=== PATIENT | female | born 2000 | race Hispanic/Latino ===

== ENCOUNTER 2020-09-30 04:43 | Inpatient (IN) | payer SELFPAY ==
[2020-09-30 05:05] VITALS: BMI 31.4
--- NOTE | 2020-09-30 06:01 | PDOC.FPROB ---
FMR OB H&P: HPI - History of Present Illness Chief Complaint: Contractions and leaking fluid History of Present Illness: Patient is a 20 year old F, , at 40 weeks based on 12.3 week US who presented due to gush of fluid this morning at 0300, with spots of blood in it, and contractions since yesterday morning, about 45 min apart. Patient denies vaginal discharge, fever/chills, shortness of breath, abdominal pain, vision changes or headaches. She promotes movement. She states that she had close care in [place] and [facility], moved here and had her first visit yesterday with PN. She denies STI history. Primary Care Physician: [facility] FMR OB H&P: Current - Care : 1 Para: 0 Gestational age: 40 weeks Due date: 09/30/2020 Dating Criteria: 12.3 week US - OB Labs Blood type: O RH: positive HIV: negative RPR: negative GBS: unknown (Growth US: 08/21/2020 2406g, hadlock 54%) FMR OB H&P: History - Past Medical History PMH: none - OB History OB History: - ORAL HYGIENIST History ORAL HYGIENIST History: no hx STI - Surgical History Sx History: no hx surgery - Social History Social History: no smoking, alcohol or drug use - Family History Family History: none FMR OB H&P: Medications - Current Home Medications: Medication Instructions Recorded Confirmed Type PNV No.118/Iron Fumarate/FA 1 tablet PO DAILY 09/30/20 09/30/20 History [ 19 Chewable Tablet] Allergies/Adverse Reactions: Allergies Allergy/AdvReac Type Severity Reaction Status Date / Time No Known Drug Allergies Allergy Verified 09/30/20 04:57 FMR OB H&P: ROS - Review of Systems General: denies: fever/chills, weight/appetite/sleep changes Eyes: denies: eye pain, vision changes ENT: denies: nasal congestion, rhinorrhea Cardiovascular: denies: chest pain, palpitation, edema Respiratory: denies: cough, congestion Gastrointestinal: denies: abdominal pain, indigestion Genitourinary (Female): reports: contractions, other (gush of fluid). denies: incontinence, dysuria, hematuria, vaginal discharge Musculoskeletal: denies: pain, stiffness Neurologic: denies: numbness, syncope Integumentary: denies: itching, rash Endocrine: denies: cold intolerance, heat intolerance Hematologic/Lymphatic: denies: prolonged or excessive bleeding, enlarged lymph nodes FMR OB H&P: Vital Signs - Maternal Vital signs: Vital Signs - First Documented Temp Pulse Resp BP 98.1 F 92 18 125/83 09/30/20 04:46 09/30/20 04:46 09/30/20 04:46 09/30/20 04:46 - Heart Tones Baseline: 130 Variability: moderate Acceleration: present Deceleration: absent Category: category 1 [place] contractions every: 4-6 min FMR OB H&P: Physical Exam - Physical Exam General: NAD, awake, alert and oriented HEENT: normocephalic and atraumatic, PERRLA, EOMI, MMM Neck: supple, FROM Heart: RRR, normal S1/S2, no murmurs/rubs/gallops General: CTAB, no respiratory distress, good air movement Abdomen: soft, gravid Musculoskeletal: normal gait and station, pulses present, FROM in all four extremities Neurological: no focal deficit Skin: no rash, good tugor Lymphatic: no unusual bruising or bleeding, no purpura FMR OB H&P: A/P Discussion: Date/Time: 09/30/20 0600 Patient is a at 40 weeks based on 12.3 week US who presents with LOF and contractions. Term Labor, sIUP SROM @ 0300 09/30 2/75/-1 @ 0445 Cat I strip, FHT 130s, +accels, -decels, morgan q4-6min - continue monitoring - will start pitocin for labor augmentation as long as contractions allow for it - Recheck in 2-4 hours pending pitocin - patient unsure about epidural, will watch educational video GBS Unknown - patient has no risk factors - considered prolonged ROM at 2100 on 09/30 - vitals stable, continue to monitor Late to Care HIV neg, RPR neg, otherwise no other labs - aware Suspected Small for Dates - Sizes were smaller than dates on exam yesterday with fundal height at [facility] - Last growth 08/21/2020 EFW 2406g, hadlock 54% This H&P was discussed with Dr. Rivera who agrees with the above documentation and plan.
[2020-09-30] MEDS ORDERED: Ondansetron PF 4 MG/2 ML Vial IVP PRN ×3 (06:10→17:58)
[2020-09-30] MEDS ORDERED: Lidocaine 1% (PF) 30 ML VIAL SC PRN ×2 (06:10→06:15)
[2020-09-30] MEDS ORDERED: hydrALAZINE 20 MG/ML VIAL SLOW IVP PRN ×2 (06:10→17:58)
[2020-09-30] MEDS ORDERED: Promethazine HCl 25 MG/ML VIAL IM PRN ×2 (06:10→10:53)
[2020-09-30] MEDS ORDERED: NS / Oxytocin 40 units/1000ml 1,000 ML IV PRN (06:10)
--- NOTE | 2020-09-30 06:22 | PDOC.BPN ---
- Brief Progress Note OBGYN semiconductor lab technician I have seen the patient at bedside. Interview done by me in slovenian. No medical issues. SROM at 0300 this AM. Unknown GBS but no risk factors (will not be prolonged ROM until 18 hrs from 0300)
[2020-09-30 06:29] LABS: Hemoglobin 12.1 g/dL (12.0-16.0); Mean Corpuscular HGB CONC 33.2 g/dL (32.0-36.0); Mean Corpuscular Hemoglobin 28.7 pg (27.0-31.0); Mean Corpuscular Volume 86.5 fL (78.0-98.0); Mean Platelet Volume 7.3 fL (7.4-10.4); Platelet Count 291 thou/uL (130-400); RBC Distribution Width 12.3 % (11.5-14.5); Red Blood Cell (RBC) Count 4.22 mill/uL (4.20-5.40); White Blood Cell (WBC) Count 9.3 thou/uL (4.8-10.8)
[2020-09-30] MEDS ORDERED: NS w/ Oxytocin 30 units 500 ML IVPB SCH (06:45)
--- NOTE | 2020-09-30 06:47 | HP ---
TIME OF EVALUATION: Roughly 0555 hours, it is now 0610 hours. LOCATION: Triage in Labor and Delivery. CHIEF COMPLAINT: Contractions and possible leakage of fluid. HISTORY OF PRESENT ILLNESS: This is a 20-year-old, G1, P0, with an estimated due date of 09/29, puts her at 40 weeks and 1 day, seen at the clinic to establish care just yesterday. She states that she was actually seen in [facility] for her care and establish care here just yesterday with a clinic. Those records are pending. She states that she is having irregular contractions and this morning, she had a leakage of fluid and on arrival appeared to be grossly ruptured. She has good movement. Denies headaches. Denies fevers or visual changes. She denies any recent trauma. REVIEW OF SYSTEMS: GENERAL: No fever. No chills. No sick contacts. PULMONARY: No shortness of breath. CARDIOVASCULAR: No chest pain. EXTREMITIES: Negative for unusual swelling or pain. PAST MEDICAL HISTORY: Otherwise negative. MEDICATIONS: None except prenatals. PAST SURGICAL HISTORY: None. ALLERGIES: NONE. SOCIAL HISTORY: Negative for alcohol, tobacco, or drug use. PHYSICAL EXAMINATION: VITAL SIGNS: Show a blood pressure of 125/83 and pulse of 91. She is afebrile. GENERAL: She is in no acute distress, but appears to have some contraction discomfort. ABDOMEN: Gravid with an estimated weight anywhere around 6 pounds or so. PELVIC: Her cervix is 2 cm dilated, 70% effaced, -1 station. Baby's head is cephalic per RN exam. There is gross evidence of rupture, so AmniSure was not performed. monitors: I evaluated the monitoring strip. It is category 1 with moderate variability. Contractions about every 4 to 6 on tocodynamometer. ASSESSMENT: This is a 20-year-old, G1, who was at 40 weeks and 1 day. The patient of the clinic who was late to establish care, first being seen yesterday with care otherwise in [place]. She arrives with early labor/ruptured membranes. She has GBS unknown. 1. GBS unknown, so we will collect for pediatric information, but we will likely not have this back to effect OB care. She currently does not have any risk factors, so we will defer to the risk factor criteria for GBS prophylaxis. Currently, there are none. 2. Pitocin for augmentation. 3. She is full term based on her EDC of 40 weeks. 4. Routine labs. 5. Case discussed with the residents and the patient seen by me. Job ID: [id number] MTDD
[2020-09-30 07:13] LABS: HBSAg Index 0.18 S/CO (0-0.99); Hep B Surf Ag Non-Reactive S/CO (NonReactive); Syphilis Antibody Nonreactive (Nonreactive); Syphilis Antibody Index 0.05 S/CO (<1.00 Non-Reactive)
--- NOTE | 2020-09-30 09:13 | PDOC.LDPN ---
Labor & Delivery Progress Note - Subjective Subjective: comfortable, vaginal pressure - Objective Vital signs reviewed and normal: yes General: NAD, resting SVE: 50/-1 Dilation: 3 Effacement: 50% Station: -1 FHT: category 1, variability present [place] contractions every: 4-5 min Plan: continue plan of care, pitocin for augmentation -: Patient is a at 40 weeks based on 12.3 week US who presents with LOF and contractions. Term Labor, sIUP SROM @ 0300 09/30 2/-1 @ 0445 pit started at 0730 /-1 @ 0850 Cat I strip, FHT 130s, +accels, -decels, morgan q4-6min - continue monitoring GBS Unknown - patient has no risk factors - considered prolonged ROM at 2100 on 09/30 - vitals stable, continue to monitor Late to Care HIV neg, RPR neg, otherwise no other labs - aware Suspected Small for Dates - Sizes were smaller than dates on exam yesterday with fundal height at [facility] - Last growth 08/21/2020 EFW 2406g, hadlock 54%
[2020-09-30] MEDS ORDERED: Bupivacaine HCl 0.25%/Epi 0.0005/PF 10 ML VIAL FS ONE (09:17)
[2020-09-30] MEDS ORDERED: Bupivacaine 0.5% 20 ML, fentaNYL Citrate/PF 400 MCG in Sodium Chloride 0.9% 72 ML EPIDURAL SCH (10:00)
[2020-09-30] MEDS ORDERED: DISCONTINUE ALL PREVIOUS NARCOTICS FS SCH (10:00)
[2020-09-30] MEDS ORDERED: Naloxone HCl 0.4 mg/ml Vial IVP PRN ×2 (10:53)
[2020-09-30] MEDS ORDERED: ePHEDrine 50 MG/ML VIAL SLOW IVP PRN (10:53)
[2020-09-30] MEDS ORDERED: diphenhydrAMINE 50 MG/ML VIAL IVP PRN (10:53)
[2020-09-30] MEDS ORDERED: Lactated Ringer's 500 ML IV PRN (10:53)
[2020-09-30] MEDS ORDERED: Acetaminophen 325 MG TAB PO PRN (10:53)
[2020-09-30] MEDS ORDERED: Communication Order-Pharmacy FS SCH (11:00)
[2020-09-30] MEDS ORDERED: Fentanyl 4 mcg/Bupivacaine 0.1% Cassette 100 ML EPIDURAL SCH (11:00)
--- NOTE | 2020-09-30 11:33 | PDOC.LDPN ---
Labor & Delivery Progress Note - Subjective Subjective: comfortable - Objective Vital signs reviewed and normal: yes General: NAD, resting SVE: 95/0 Dilation: 4 Effacement: 90% Station: 0 FHT: category 1, variability present [place] contractions every: 2-3 min Plan: continue plan of care, pitocin for augmentation -: Patient is a at 40.1 weeks based on 12.3 week US who presents with LOF and contractions. Term Labor, sIUP SROM @ 0300 09/30 /-1 @ 0445 pit started at 0730 /-1 @ 0850 /0 @ 1120, epidural Cat I strip, FHT 130s, +accels, -decels, morgan q2-3min - continue monitoring GBS Unknown - patient has no risk factors - considered prolonged ROM at 2100 on 09/30 - vitals stable, continue to monitor Late to Care HIV neg, RPR neg, otherwise no other labs - aware Suspected Small for Dates - Sizes were smaller than dates on exam yesterday with fundal height at [facility] - Last growth 08/21/2020 EFW 2406g, hadlock 54% Recheck in 2-3 hours
[2020-09-30 15:45] LABS: SARS-CoV-2 MS2 Positive; SARS-CoV-2 N Gene Negative; SARS-CoV-2 S Gene Negative; SARS-CoV-2 by NAA Not Detected (NotDetected); SARS-CoV-2 orf1ab Negative
[2020-09-30] MEDS ORDERED: Misoprostol 200 MCG TAB ONE (16:21)
[2020-09-30] MEDS ORDERED: Misoprostol 200 MCG TAB PR SCH (16:45)
--- NOTE | 2020-09-30 16:49 | PDOC.OPDEL ---
OB Operative/Delivery Note - Additional Findings/Plan Compilations/Other Findings: Vaginal Delivery Delivering Physician: Coretta Peña MD PGY-3 Attending: Murtaza Manzo MD Procedure: Spontaneous Vaginal Delivery Anesthesia: Epidural QBL: 100ml Pre-op Diagnosis: 1. Term intrauterine in labor 2. Late transition of care from [place] 3. GBS unknown Post-op Diagnosis: 1. Term intrauterine , delivered 2. Same as above Indications: A 20yo female G1 presented after SROM Delivery Note: This is 20yo F G1 @ 40.0wks who delivered a viable F infant at 1536 on 09/30/20. Following an uneventful antepartum course, a vigorous female was delivered in the occipitoanterior position. Anterior shoulder and then remainder of the body delivered. Nuchal cord x1. The head was held down and mouth and nares were bulb suctioned. Cord clamped after delayed cord clamping and cut and cord blood collected. Placenta delivered intact in the Gutiérrez presentation with a 3 vessel cord noted. Fundal massage was performed and the fundus was firm. The cervix and vagina small second degree Laceration noted and repaired with 3-0 Chromic in the usual fashion with good approximation and hemostasis. went to nursery in good condition for routine care. Apgars were 8/9 at 1 & 5 minutes, respectively. Patient tolerated delivery well and went to after routine recovery/care. Addendum - Attending - Attending Attestation Date/Time: 10/01/20 7077 I personally evaluated the patient and discussed the management with Dr. Peña I agree with the History, Examination, Assessment and Plan documented above with any addition or exceptions noted below. I was present and supervising for the 2nd and 3rd stages of labor.
[2020-09-30] MEDS ORDERED: Bisacodyl 10 MG SUPP PR PRN (17:58)
[2020-09-30] MEDS ORDERED: Milk Of Magnesia 30 ML UDCUP PO PRN (17:58)
[2020-09-30] MEDS ORDERED: Lanolin Ointment 7 GM TUBE TOP PRN (17:58)
[2020-09-30] MEDS ORDERED: NS / Oxytocin 40 units/1000ml 1,000 ML IV SCH (17:58)
[2020-09-30] MEDS ORDERED: Benzocaine-Menthol 82.5 ML CAN TOP PRN (17:58)
[2020-09-30] MEDS ORDERED: Preparation H Ointment 28 GM TUBE PR PRN (17:58)
[2020-09-30] MEDS ORDERED: Ferrous Sulfate 325 MG TAB PO SCH (18:30)
[2020-09-30] MEDS: Docusate Calcium (SURFAK) 240 MG CAP PO SCH (19:54)
[2020-09-30] MEDS: Ibuprofen 800 MG TAB PO SCH (19:54)
[2020-10-01] MEDS: Ibuprofen 800 MG TAB PO SCH ×3 (05:59→22:12)
[2020-10-01] MEDS: Ferrous Sulfate 325 MG TAB PO SCH ×2 (07:27→16:34)
--- NOTE | 2020-10-01 07:48 | PDOC.OBPPN ---
FMR OB PN: Subj - Interval History Hospital Day: 1 Day: 1 Chief Complaint: s/p @ 40W EGA by 1T US @ 1536 on 09/30 Indentification: G1>P1 Interval History: No complaints FMR OB PN: Obj - Maternal Vital signs: BP: [99/53] HR: [89] RR: [20] Tmax: [98] Pox: [98]% on [Room Air] Wt: [73 kg] - Urine output I&O: 09/30/20 10/01/20 10/02/20 06:59 06:59 06:59 Intake Total 500 Output Total 314 Balance 186 - Lochia Lochia: Minimal - Pain Management Pain scale: 2 Intervention: oral medication FMR OB PN: Exam - Physical Exam General: NAD HEENT: normocephalic and atraumatic, PERRLA, MMM, conjunctiva clear, no scleral icterus, grossly normal vision, grossly normal hearing Neck: supple, FROM, trachea midline, no LAD Breast: symmetric Heart: RRR, normal S1/S2, no murmurs/rubs/gallops, pulses present, no edema General: CTAB, no respiratory distress, good air movement, no rales/rhonchi, no wheezing, no retractions Deviation from normal: Appropriately tender, Uterine Fundus < Umbilicus Musculoskeletal: pulses present, FROM in all four extremities, no misalignment/asymmetry, no atrophy Neurological: no focal deficit : appropriately tender Lymphatic: no unusual bruising or bleeding, no purpura, no petechia Psychiatric: intact recent and remote memory, good judgement and insight, normal mood and affect FMR OB PN: Data - Labs Lab results: Laboratory Results - last 24 hr 09/30/20 09/30/20 09/30/20 06:17 06:54 07:11 SARS-CoV-2 (PCR) Not Detected Hep Bs Antigen Non-Reactive Blood Type O POSITIVE FMR OB PN: A/P - Problem List (1) Vaginal delivery Current Visit: Yes Status: Acute Code(s): O80 - ENCOUNTER FOR FULL-TERM UNCOMPLICATED DELIVERY Disposition: Patient is a 20 y/o G1>P1 female s/p at 40.1W EGA based on 12.3W US who initially presented to L&D for evaluation following LOF and CTX. #Term SIUP, s/p -SROM @ 0300 (09/30) -s/p @ 1536 on 09/30 -Nuchal cord x1 - easily reduced -2* Perineal Laceration s/p repair with 3-0 Chromic -QBL: 100 ml #GBS Unknown -Swab: Pending -Patient has no known risk factors and ROM < 18H -VSS w/o documented fevers or elevated BP #Late to Care -HIV: Negative -RPR: Negative -HepB: Negative -Aware #Suspected Small for Dates -Sizes were smaller than dates on initial exam based on Fundal Height at [facility] -Growth Scan (08/21/2020): EFW 2406g, Hadlock 54% - vital signs pending PCP: [facility] Code: Full Diet: Regular Activity: Ad jhoan / Ambulate w/ Assist VTE: None IVF: None Dispo: Patient appears well at this time with no worrisome signs or symptoms noted during evaluation. Patient is tolerating PO intake well with adequate voiding, but still not BM or flatulence. Will continue routine PP recovery and plan for DC on 10/02/2020. Discussion: Date/Time: 10/01/20 1466 This H&P was discussed with [] and [] who agree with the above documentation and plan. Addendum - Attending - Attending Attestation Date/Time: 10/01/20 9850 I personally evaluated the patient and discussed the management with Dr. Frausto. I agree with the History, Examination, Assessment and Plan documented above. Doing well, anticipate d/c tomorrow.
[2020-10-01] MEDS ORDERED: Adacel (T-DAP) 0.5 ML SYRINGE IM ONE (09:00)
[2020-10-01] MEDS: Docusate Calcium (SURFAK) 240 MG CAP PO SCH ×2 (10:05→22:12)
[2020-10-01] MEDS: Prenatal Vitamin 1 TAB PO SCH (10:05)
[2020-10-02] MEDS: Ibuprofen 800 MG TAB PO SCH (06:14)
[2020-10-02 08:27] VITALS: BP 105/67; TEMP 98.6
--- NOTE | 2020-10-02 08:58 | PDOC.OBPPN ---
FMR OB PN: Subj - Interval History Hospital Day: 2 Day: 2 Chief Complaint: LOF Indentification: G1>P1 Interval History: No complaints FMR OB PN: Obj - Maternal Vital signs: BP: [] HR: [] RR: [] Tmax: [] Pox: []% on [] Wt: [] - Urine output I&O: 10/01/20 10/02/20 10/03/20 06:59 06:59 06:59 Intake Total 500 Output Total 314 22 Balance 186 -22 - Lochia Lochia: Minimal - Pain Management Pain scale: 1 Intervention: oral medication FMR OB PN: Exam - Physical Exam General: NAD HEENT: normocephalic and atraumatic, MMM, grossly normal vision, grossly normal hearing Neck: supple, FROM, trachea midline, no LAD Chest: non-tender to palpation Breast: symmetric Heart: RRR, normal S1/S2, no murmurs/rubs/gallops, pulses present General: CTAB, no respiratory distress, good air movement, no rales/rhonchi, no wheezing, no retractions Abdomen: soft, non-tender Deviation from normal: Uterine Fundus < Umbilicus Musculoskeletal: FROM in all four extremities Neurological: no focal deficit Lymphatic: no unusual bruising or bleeding, no purpura, no petechia, no LAD Psychiatric: intact recent and remote memory, good judgement and insight, normal mood and affect FMR OB PN: A/P - Problem List (1) Vaginal delivery Status: Acute Code(s): O80 - ENCOUNTER FOR FULL-TERM UNCOMPLICATED DELIVERY Disposition: Patient is a 20 y/o G1>P1 female s/p at 40.1W EGA based on 12.3W US who initially presented to L&D for evaluation following LOF and CTX. #Term SIUP, s/p -SROM @ 0300 (09/30) -s/p @ 1536 on 09/30 -Nuchal cord x1 - easily reduced -2* Perineal Laceration s/p repair with 3-0 Chromic -QBL: 100 ml -Recovering well - no significant complaints #GBS Unknown -Swab: Pending -Patient has no known risk factors and ROM < 18H -VSS w/o documented fevers or elevated BP #Late to Care -HIV: Negative -RPR: Negative -HepB: Negative -Aware #Suspected Small for Dates -Sizes were smaller than dates on initial exam based on Fundal Height at [facility] -Growth Scan (08/21/2020): EFW 2406g, Hadlock 54% - vital signs pending PCP: [facility] Code: Full Diet: Regular Activity: Ad jhoan VTE: None IVF: None Dispo: Patient appears well at this time with no worrisome signs or symptoms noted during evaluation. Patient is tolerating PO intake well with adequate voiding. Will continue routine PP recovery and likely DC later today. Expected LOS < 12H. Discussion: Date/Time: 10/02/20 0856 This H&P was discussed with [] and [] who agree with the above documentation and plan. Addendum - Attending - Attending Attestation Date/Time: 10/03/20 0904 I personally evaluated the patient and discussed the management with Dr. Frausto. I agree with the History, Examination, Assessment and Plan documented above.
[2020-10-02] MEDS: Ferrous Sulfate 325 MG TAB PO SCH (09:35)
[2020-10-02] MEDS: Prenatal Vitamin 1 TAB PO SCH (09:48)
[2020-10-02] MEDS: Docusate Calcium (SURFAK) 240 MG CAP PO SCH (09:48)
== END 2020-10-02 14:10 | disposition home or self-care (01) | DRG 807 ==
LOC: L&D/OP 04:43 → L&D 06:49 → 3SW 19:27
PROVIDERS: ADMIT Obstetrics & Gynecology; ATTEND Obstetrics & Gynecology
PROC: 10E0XZZ Delivery of Products of Conception, External Approach (ICD-10-PCS; principal; 2020-09-30)
PROC: 0KQM0ZZ Repair Perineum Muscle, Open Approach (ICD-10-PCS; 2020-09-30)
DX: O69.81X0 Labor and delivery complicated by cord around neck, without compression, not applicable or unspecified (principal); Z37.0 Single live birth; Z20.828 Contact with and (suspected) exposure to other viral communicable diseases; Z3A.40 40 weeks gestation of pregnancy; O70.1 Second degree perineal laceration during delivery; O36.5930 Maternal care for other known or suspected poor fetal growth, third trimester, not applicable or unspecified
CPT/HCPCS: 36415; 51702; 85027; 86780; 86850; 86900; 86901; 87340; 87635; 99285; J2001; J2590; J3010; J3490; U0003